=== PATIENT | male | born 1955 | race Caucasian/White ===

== ENCOUNTER 2019-05-04 15:53 | Emergency (ER) | payer OTHER ==
[~2019-05-04] VITALS: Ht 180.3 cm; Wt 108.9 kg
[~2019-05-04 15:53] MED LIST: ALBU90OI INH; Phenergan/Code480 ML PO; Prednisone20 MG PO
[2019-05-04 17:47] LABS: BASOPHILS ABSOLUTE AUTO 0.05 K/mm3 (0.00-0.23); BASOPHILS PERCENT AUTO 1 % (0-2); EOSINOPHILS PERCENT AUTO 6 % (0-6); Hematocrit 44.9 % (37.0-53.0); Hemoglobin 14.5 g/dL (13.5-17.5); IMMATURE GRAN ABSOLUTE AUTO 0.05 K/mm3 (0.00-0.10); IMMATURE GRAN PERCENT AUTO 1 % (0-1); LYMPHOCYTES ABSOLUTE AUTO 2.35 K/mm3 (0.84-5.20); LYMPHOCYTES PERCENT AUTO 27 % (21-46); MONOCYTES ABSOLUTE AUTO 0.73 K/mm3 (0.16-1.47); MONOCYTES PERCENT AUTO 8 % (4-13); Mean Corpuscular HGB 27.3 pg (26.0-34.0); Mean Corpuscular HGB Conc 32.3 g/dL (31.5-36.5); Mean Corpuscular Volume 85 fL (80-100); Mean Platelet Volume 8.9 fL (9.1-12.4); NEUTROPHILS PERCENT AUTO 58 % (41-73); Platelet Count 337 K/mm3 (150-400); RDW Coefficient Variation 13.4 % (11.7-14.2); RDW Standard Deviation 41.5 fL (35.1-46.3); Red Blood Cell Count 5.31 M/mm3 (4.30-5.90); White Blood Cell Count 8.78 K/mm3 (4.00-11.30)
[2019-05-04 18:20] LABS: Alanine Aminotransfer (ALT/SGP 64 U/L (12-78); Albumin, Blood 3.8 g/dL (3.4-5.0); Albumin/Globulin Ratio 0.9 (0.8-1.8); Alk Phos 98 U/L (50-136); Anion Gap 4 mmol/L (6-16); Aspartate Aminotrans (AST/SGOT 32 U/L (12-37); Bilirubin, Total 0.5 mg/dL (0.1-1.0); Blood Urea Nitrogen 25 mg/dL (8-24); Bun/Creatinine Ratio 19.5 (12.0-20.0); CO2, Blood 30 mmol/L (21-32); Calcium, Blood 8.9 mg/dL (8.5-10.1); Chloride, Blood 101 mmol/L (98-108); Creatinine, Blood 1.28 mg/dL (0.60-1.20); Globulin, Blood 4.2 g/dL (2.2-4.0); Glomerular Filtration Rate >60 (60-); Glucose, Blood 108 mg/dL (70-99); Potassium, Blood 4.6 mmol/L (3.5-5.5); Sodium, Blood 135 mmol/L (136-145); Troponin I <0.015 ng/mL (0.000-0.040)
[2019-05-04] MEDS ORDERED: Zithromax250 MG PO (18:49)
[2019-05-04] MEDS ORDERED: Prednisone20 MG PO (18:49)
[2019-05-04] MEDS ORDERED: ALBU90OI INH (18:49)
== END 2019-05-04 18:53 | disposition home or self-care (01) ==
LOC: ER 15:53
PROVIDERS: Physician Assistant
DX: R06.02 Shortness of breath (principal); Z87.891 Personal history of nicotine dependence
CPT/HCPCS: 36415; 71046; 80053; 84484; 85025; 85379; 93005; 93010; 94640; 99284-25; J7512

== ENCOUNTER 2019-11-25 11:19 | Emergency (ER) | payer OTHER ==
[~2019-11-25] VITALS: Ht 182.9 cm; Wt 108.9 kg
[~2019-11-25 11:19] MED LIST changes: +Zithromax250 MG PO
[2019-11-25 12:10] LABS: Influenza A Negative (NEGATIVE); Influenza B Negative (NEGATIVE)
[2019-11-25] MEDS ORDERED: GUAIFEN-CODEINE10 ML PO (12:39)
[2019-11-25] MEDS ORDERED: Zithromax250 MG PO (12:39)
[2019-11-25] MEDS ORDERED: Ventolin/Prove6.7 GM INH (12:39)
== END 2019-11-25 12:50 | disposition home or self-care (01) ==
LOC: ER 11:19
PROVIDERS: Physician Assistant
DX: J41.1 Mucopurulent chronic bronchitis (principal); Z87.891 Personal history of nicotine dependence
CPT/HCPCS: 71046; 87804; 99283-25

== ENCOUNTER 2020-04-11 11:15 | Emergency (ER) | payer OTHER ==
[~2020-04-11] VITALS: Ht 182.9 cm; Wt 113.4 kg
[~2020-04-11 11:15] MED LIST changes: +GUAIFEN-CODEINE10 ML PO; +Ventolin/Prove6.7 GM INH
[2020-04-11 12:11] LABS: BASOPHILS ABSOLUTE AUTO 0.04 K/mm3 (0.00-0.23); BASOPHILS PERCENT AUTO 0 % (0-2); EOSINOPHILS ABSOLUTE AUTO 0.01 K/mm3 (0.00-0.68); EOSINOPHILS PERCENT AUTO 0 % (0-6); Hematocrit 40.7 % (37.0-53.0); Hemoglobin 13.7 g/dL (13.5-17.5); IMMATURE GRAN ABSOLUTE AUTO 0.06 K/mm3 (0.00-0.10); IMMATURE GRAN PERCENT AUTO 1 % (0-1); LYMPHOCYTES ABSOLUTE AUTO 1.21 K/mm3 (0.84-5.20); LYMPHOCYTES PERCENT AUTO 10 % (21-46); MONOCYTES ABSOLUTE AUTO 1.34 K/mm3 (0.16-1.47); MONOCYTES PERCENT AUTO 11 % (4-13); Mean Corpuscular HGB 27.8 pg (26.0-34.0); Mean Corpuscular HGB Conc 33.7 g/dL (31.5-36.5); Mean Corpuscular Volume 83 fL (80-100); NEUTROPHILS ABSOLUTE AUTO 9.87 K/mm3 (1.96-9.15); NEUTROPHILS PERCENT AUTO 79 % (41-73); Platelet Count 259 K/mm3 (150-400); RDW Coefficient Variation 13.2 % (11.7-14.2); RDW Standard Deviation 39.6 fL (35.1-46.3); Red Blood Cell Count 4.93 M/mm3 (4.30-5.90); White Blood Cell Count 12.53 K/mm3 (4.00-11.30)
[2020-04-11 12:26] LABS: Alanine Aminotransfer (ALT/SGP 49 U/L (12-78); Albumin/Globulin Ratio 0.6 (0.8-1.8); Alk Phos 123 U/L (50-136); Anion Gap 9 mmol/L (6-16); Aspartate Aminotrans (AST/SGOT 35 U/L (12-37); Bilirubin, Total 0.8 mg/dL (0.1-1.0); Blood Urea Nitrogen 19 mg/dL (8-24); Bun/Creatinine Ratio 13.2 (12.0-20.0); CO2, Blood 25 mmol/L (21-32); Calcium, Blood 8.5 mg/dL (8.5-10.1); Chloride, Blood 95 mmol/L (98-108); Creatinine, Blood 1.44 mg/dL (0.60-1.20); Globulin, Blood 5.3 g/dL (2.2-4.0); Glomerular Filtration Rate 53 (60-); Glucose, Blood 151 mg/dL (70-99); Potassium, Blood 4.1 mmol/L (3.5-5.5); Sodium, Blood 129 mmol/L (136-145); Total Protein, Blood 8.3 g/dL (6.4-8.2); Troponin I <0.015 ng/mL (0.000-0.040)
[2020-04-11 15:35] LABS: Source, Urine Clean Catch
[2020-04-11 15:40] LABS: Bilirubin, Urine Neg (Neg); Blood, Urine 4+ (Neg); Glucose Qualitative, Urine 1+ (Neg); Ketones, Urine Neg (Neg); Leukocyte Esterase, Urine Neg (Neg); Nitrite, Urine Neg (Neg); Protein, Urine 3+ (Neg); Specific Gravity, Urine 1.015 (1.003-1.022); Urobilinogen, Urine 1+ (Normal)
[2020-04-11] MEDS ORDERED: Augmentin 875-1 EACH PO (15:54)
[2020-04-11] MEDS ORDERED: Zithromax250 MG PO (15:54)
[2020-04-11 15:58] LABS: Appearance, Urine Clear (Clear); Color, Urine Amber (P-Yellow)
[2020-04-11 16:03] LABS: Bacteria Few /hpf; Red Blood Cells, Urine Not Seen /hpf (0-2); Squamous Epithelial Cells Not Seen /hpf (Few); White Blood Cells, Urine 0-2 /hpf (0-5)
[2020-04-11 16:04] LABS: Hyaline Casts 0-2 /lpf (0-2); Mucus Light (0-Heavy)
== END 2020-04-11 16:22 | disposition home or self-care (01) ==
LOC: ER 11:15
PROVIDERS: Emergency Medicine; Physician Assistant
DX: J18.9 Pneumonia, unspecified organism (principal); Z20.828 Contact with and (suspected) exposure to other viral communicable diseases; E87.1 Hypo-osmolality and hyponatremia; Z87.891 Personal history of nicotine dependence
CPT/HCPCS: 36415; 71045; 80053; 81001; 83605; 84145; 84484; 85025; 87040; 93005; 93010; 99284-25; U0002

== ENCOUNTER 2022-12-01 21:13 | Emergency (ER) | payer OTHER ==
[~2022-12-01] VITALS: Ht 172.7 cm; Wt 185.0 kg
[~2022-12-01 21:13] MED LIST changes: +Augmentin 875-1 EACH PO
[2022-12-01] MEDS ORDERED: AMOCLA875 PO (22:43)
== END 2022-12-02 01:40 | disposition home or self-care (01) ==
LOC: ER 21:13
DX: L03.116 Cellulitis of left lower limb (principal); Z87.891 Personal history of nicotine dependence
CPT/HCPCS: 73630; J0692; J3370; J7050

== ENCOUNTER 2022-12-03 13:39 | Day surgery (SDC) | payer OTHER ==
[~2022-12-03] VITALS: Ht 180.3 cm; Wt 98.9 kg
[~2022-12-03 13:39] MED LIST changes: +AMOCLA875 PO
[2022-12-03 15:55] LABS: Creatinine, Blood 1.1 mg/dL (0.60-1.20)
== END 2022-12-03 17:28 | disposition home or self-care (01) ==
LOC: ATC 13:39
DX: M86.9 Osteomyelitis, unspecified (principal); Z87.891 Personal history of nicotine dependence
CPT/HCPCS: 82565; J0696; J3370; J7050

== ENCOUNTER 2022-12-04 01:05 | Day surgery (SDC) | payer OTHER ==
[2022-12-05] MEDS ORDERED: CUBICIN RF500 M1 IV (07:40)
[2022-12-05] MEDS ORDERED: CEFTRIAXONE2 G1 IV (07:40)
== END 2022-12-04 17:03 | disposition home or self-care (01) ==
LOC: ATC 01:05
DX: L03.116 Cellulitis of left lower limb (principal); Z87.891 Personal history of nicotine dependence
CPT/HCPCS: 96365; 96366; 96375; J0696; J3370; J7050

== ENCOUNTER 2022-12-05 04:43 | Day surgery (SDC) | payer OTHER ==
[2022-12-05] MEDS ORDERED: CEFTRIAXONE2 G1 IV (07:40)
[2022-12-05] MEDS ORDERED: CUBICIN RF500 M1 IV (07:40)
== END 2022-12-05 08:14 | disposition home or self-care (01) ==
LOC: ATC 04:43
DX: M86.9 Osteomyelitis, unspecified (principal)
CPT/HCPCS: 96365; 96375; C1751; J0696; J0878

== ENCOUNTER 2022-12-06 00:09 | Day surgery (SDC) | payer OTHER ==
[~2022-12-06 00:09] MED LIST changes: +CEFTRIAXONE2 G1 IV; +CUBICIN RF500 M1 IV
== END 2022-12-06 08:07 | disposition home or self-care (01) ==
LOC: ATC 00:09
DX: L03.116 Cellulitis of left lower limb (principal); Z87.891 Personal history of nicotine dependence
CPT/HCPCS: 96365; 96375; J0696; J0878

== ENCOUNTER 2022-12-07 02:27 | Day surgery (SDC) | payer OTHER | END 2022-12-07 08:11 | disposition home or self-care (01) | LOC: ATC 02:27 | DX: M86.9 Osteomyelitis, unspecified (principal) | CPT/HCPCS: J0696; J0878 ==

== ENCOUNTER 2022-12-08 04:18 | Emergency (ER) | payer OTHER ==
[~2022-12-08] VITALS: Ht 180.3 cm; Wt 92.5 kg
== END 2022-12-08 06:00 | disposition home or self-care (01) ==
LOC: ER 04:18
DX: M25.552 Pain in left hip (principal); Z79.899 Other long term (current) drug therapy; Z87.891 Personal history of nicotine dependence
CPT/HCPCS: 73502; A9270; J1885

== ENCOUNTER 2022-12-09 00:25 | Day surgery (SDC) | payer OTHER | END 2022-12-09 22:36 | disposition home or self-care (01) | LOC: ATC 00:25 | DX: L03.116 Cellulitis of left lower limb (principal) | CPT/HCPCS: J0696; J0878 ==

== ENCOUNTER 2022-12-10 01:31 | Day surgery (SDC) | payer OTHER | END 2022-12-10 22:58 | disposition home or self-care (01) | LOC: ATC 01:31 | DX: M86.9 Osteomyelitis, unspecified (principal); L03.116 Cellulitis of left lower limb; Z87.891 Personal history of nicotine dependence ==

== ENCOUNTER 2022-12-12 01:27 | Day surgery (SDC) | payer OTHER | END 2022-12-12 08:20 | disposition home or self-care (01) | LOC: ATC 01:27 | DX: M86.9 Osteomyelitis, unspecified (principal) | CPT/HCPCS: J0696; J0878 ==

== ENCOUNTER 2022-12-13 02:37 | Day surgery (SDC) | payer OTHER | END 2022-12-13 08:25 | disposition home or self-care (01) | LOC: ATC 02:37 | DX: M86.9 Osteomyelitis, unspecified (principal); Z87.891 Personal history of nicotine dependence | CPT/HCPCS: 96365; J0696; J0878 ==

== ENCOUNTER 2022-12-14 01:55 | Day surgery (SDC) | payer OTHER | END 2022-12-14 08:17 | disposition home or self-care (01) | LOC: ATC 01:55 | DX: M86.9 Osteomyelitis, unspecified (principal); Z87.891 Personal history of nicotine dependence | CPT/HCPCS: J0696; J0878 ==

== ENCOUNTER 2022-12-14 10:08 | Day surgery (SDC) | payer OTHER ==
[~2022-12-14] VITALS: Ht 180.3 cm; Wt 98.4 kg
--- NOTE | 2022-12-14 13:04 | NUR ---
[facility]14/[address] [facility] FOR L LEG "DRAGGING", DR RASCON AWARE. RECEIVED IV ABX THIS AM [facility] THAT HE IS HERE FOR SURGERY FOR TODAY, DR RASCON AND DR STARKS ALERTED.
== END 2022-12-14 14:59 | disposition home or self-care (01) ==
LOC: ORSCSDS 10:08
PROVIDERS: Podiatrist Foot & Ankle Surgery
PROC: 0Y6U0Z1 Detachment at Left 3rd Toe, High, Open Approach (ICD-10-PCS; principal; 2022-12-14 12:40)
DX: M86.9 Osteomyelitis, unspecified (principal); L03.032 Cellulitis of left toe; Z87.891 Personal history of nicotine dependence
CPT/HCPCS: 88305; 88311; 96365; 96375; J0690; J0696; J0878; J2001; J2704; J2795; J7120

== ENCOUNTER 2022-12-15 00:16 | Day surgery (SDC) | payer OTHER | END 2022-12-15 09:20 | disposition home or self-care (01) | LOC: ATC 00:16 | DX: M86.9 Osteomyelitis, unspecified (principal); Z87.891 Personal history of nicotine dependence | CPT/HCPCS: J0696; J0878 ==

== ENCOUNTER 2023-01-22 01:32 | Emergency (ER) | payer OTHER ==
[~2023-01-22] VITALS: Ht 170.2 cm; Wt 79.4 kg
[2023-01-22 03:20] LABS: BASOPHILS ABSOLUTE AUTO 0.04 K/mm3 (0.00-0.23); BASOPHILS PERCENT AUTO 0 % (0-2); EOSINOPHILS ABSOLUTE AUTO 0.81 K/mm3 (0.00-0.68); EOSINOPHILS PERCENT AUTO 7 % (0-6); Hematocrit 38.7 % (37.0-53.0); IMMATURE GRAN ABSOLUTE AUTO 0.03 K/mm3 (0.00-0.10); IMMATURE GRAN PERCENT AUTO 0 % (0-1); LYMPHOCYTES PERCENT AUTO 15 % (21-46); MONOCYTES ABSOLUTE AUTO 0.96 K/mm3 (0.16-1.47); MONOCYTES PERCENT AUTO 8 % (4-13); Mean Corpuscular HGB 26.5 pg (26.0-34.0); Mean Corpuscular HGB Conc 33.6 g/dL (31.5-36.5); Mean Corpuscular Volume 79 fL (80-100); Mean Platelet Volume 8.3 fL (9.1-12.4); NEUTROPHILS ABSOLUTE AUTO 8.15 K/mm3 (1.96-9.15); NEUTROPHILS PERCENT AUTO 70 % (41-73); Platelet Count 370 K/mm3 (150-400); RDW Coefficient Variation 13.8 % (11.7-14.2); Red Blood Cell Count 4.91 M/mm3 (4.30-5.90); White Blood Cell Count 11.69 K/mm3 (4.00-11.30)
[2023-01-22 03:38] LABS: Albumin, Blood 3.2 g/dL (3.4-5.0); Albumin/Globulin Ratio 0.6 (0.8-1.8); Bun/Creatinine Ratio 18.2 (12.0-20.0); Calcium, Blood 9.1 mg/dL (8.5-10.1); Creatinine, Blood 1.54 mg/dL (0.60-1.20); Potassium, Blood 4.4 mmol/L (3.5-5.5); Total Protein, Blood 8.2 g/dL (6.4-8.2)
[2023-01-22] MEDS ORDERED: CEPH500 PO (04:24)
== END 2023-01-22 04:36 | disposition home or self-care (01) ==
LOC: ER 01:32
PROVIDERS: Student in an Organized Health Care Education/Training Program
DX: S62.630B Displaced fracture of distal phalanx of right index finger, initial encounter for open fracture (principal); W22.8XXA Striking against or struck by other objects, initial encounter
CPT/HCPCS: 36415; 73140; 80053; 83605; 85025; 90471; 90714; 96374; 99283-25; J0690

== ENCOUNTER 2023-07-26 14:54 | Emergency (ER) | payer OTHER ==
[~2023-07-26] VITALS: Ht 177.8 cm; Wt 127.0 kg
[~2023-07-26 14:54] MED LIST changes: +ACET325 PO; +CEPH500 PO; +DOCU100 PO; +OXAYDO5 M1 PO; +SULTRIDS PO; +VISBIOME 112.51 EACH PO
[2023-07-26 18:02] VITALS: BP 148/81
[2023-07-26] MEDS ORDERED: ONDA4 PO (20:20)
== END 2023-07-26 20:36 | disposition home or self-care (01) ==
LOC: ER 14:54
DX: M66.0 Rupture of popliteal cyst (principal); Z79.899 Other long term (current) drug therapy; Z87.891 Personal history of nicotine dependence
CPT/HCPCS: 93971; 96372; 99283-25; A9270; J1885

== ENCOUNTER 2023-08-16 04:39 | Day surgery (SDC) | payer OTHER ==
[~2023-08-16 04:39] MED LIST changes: +Amlodipine-Ben1 EAC1 PO; +ONDA4 PO
[2023-08-16 13:58] VITALS: BP 152/65
== END 2023-08-16 14:27 | disposition home or self-care (01) ==
LOC: ATC 04:39
DX: R78.81 Bacteremia (principal); M00.9 Pyogenic arthritis, unspecified
CPT/HCPCS: 96365; J0696

== ENCOUNTER 2023-08-17 13:14 | Day surgery (SDC) | payer OTHER ==
[2023-08-17 13:27] VITALS: BP 149/82
== END 2023-08-17 14:00 | disposition home or self-care (01) ==
LOC: ATC 13:14
DX: M00.9 Pyogenic arthritis, unspecified (principal); Z89.021 Acquired absence of right finger(s); Z89.422 Acquired absence of other left toe(s); D64.9 Anemia, unspecified
CPT/HCPCS: 96365; J0696

== ENCOUNTER 2023-08-18 04:04 | Day surgery (SDC) | payer OTHER ==
[2023-08-18 14:45] VITALS: BP 118/68
== END 2023-08-18 14:56 | disposition home or self-care (01) ==
LOC: ATC 04:04
DX: R78.81 Bacteremia (principal); M00.9 Pyogenic arthritis, unspecified; N17.9 Acute kidney failure, unspecified; Z89.021 Acquired absence of right finger(s)
CPT/HCPCS: 96365; J0696

== ENCOUNTER 2023-08-19 00:11 | Day surgery (SDC) | payer OTHER ==
[2023-08-19 13:52] VITALS: BP 134/100
== END 2023-08-19 14:10 | disposition home or self-care (01) ==
LOC: ATC 00:11
DX: R78.81 Bacteremia (principal); M00.9 Pyogenic arthritis, unspecified; Z89.021 Acquired absence of right finger(s)
CPT/HCPCS: 96365; J0696

== ENCOUNTER 2023-09-06 10:58 | Inpatient (IN) | payer OTHER ==
[~2023-09-06] VITALS: Ht 180.3 cm; Wt 122.5 kg
[2023-09-06 11:35] LABS: BASOPHILS ABSOLUTE AUTO 0.04 K/mm3 (0.00-0.23); BASOPHILS PERCENT AUTO 0 % (0-2); EOSINOPHILS ABSOLUTE AUTO 0.81 K/mm3 (0.00-0.68); EOSINOPHILS PERCENT AUTO 6 % (0-6); Hematocrit 31.4 % (37.0-53.0); Hemoglobin 10.2 g/dL (13.5-17.5); IMMATURE GRAN PERCENT AUTO 1 % (0-1); LYMPHOCYTES ABSOLUTE AUTO 2.38 K/mm3 (0.84-5.20); LYMPHOCYTES PERCENT AUTO 17 % (21-46); MONOCYTES PERCENT AUTO 5 % (4-13); Mean Corpuscular HGB 26.2 pg (26.0-34.0); Mean Corpuscular HGB Conc 32.5 g/dL (31.5-36.5); Mean Corpuscular Volume 81 fL (80-100); Mean Platelet Volume 8.3 fL (9.1-12.4); NEUTROPHILS ABSOLUTE AUTO 9.72 K/mm3 (1.96-9.15); NEUTROPHILS PERCENT AUTO 71 % (41-73); Platelet Count 444 K/mm3 (150-400); RDW Coefficient Variation 13.7 % (11.7-14.2); RDW Standard Deviation 39.7 fL (35.1-46.3); White Blood Cell Count 13.75 K/mm3 (4.00-11.30)
[2023-09-06 11:58] LABS: Albumin, Blood 2.6 g/dL (3.4-5.0); Albumin/Globulin Ratio 0.4 (0.8-1.8); Bilirubin, Total 0.3 mg/dL (0.1-1.0); Bun/Creatinine Ratio 21.9 (12.0-20.0); C-REACTIVE PROTEIN, EXT RANGE 3.91 mg/dL (0.000-0.300); Calcium, Blood 8.7 mg/dL (8.5-10.1); Creatinine, Blood 1.51 mg/dL (0.60-1.20); Globulin, Blood 6.2 g/dL (2.2-4.0); Potassium, Blood 4.2 mmol/L (3.5-5.5); Total Protein, Blood 8.8 g/dL (6.4-8.2)
[2023-09-06 13:05] LABS: Body Fluid Crystals NEG (NEGATIVE)
[2023-09-06 13:43] LABS: Appearance, Synovial Fluid Cloudy (Clear); Color, Synovial Fluid Brown (None-P Yel)
[2023-09-06 13:44] LABS: BODY FLUID RBC 0.034 M/mm3 (0-0); RBC Count, Synovial Fluid 34000 /mm3 (0-0)
[2023-09-06 14:59] LABS: Neutrophils, Synovial Fluid 100 % (0-24)
[2023-09-06 18:37] VITALS: BP 151/86
--- NOTE | 2023-09-06 18:40 | NUR ---
Received pt from ED at 1830 awake and alert x3. VSS. Oriented to room and call light. Pt ambulating independently. Resp even nonlabored on RA. Daughter at bedside.
[2023-09-06 20:35] VITALS: BP 144/77
[2023-09-06] MEDS ORDERED: CEFTRIAXON1 GM/50 M1 IV (21:36)
[2023-09-06] MEDS ORDERED: Keflex500 MG PO (21:37)
[2023-09-06] MEDS ORDERED: OXYC5 PO (21:38)
[2023-09-06 22:12] LABS: U Amphetamine Screen DETECTED; U Barbituate Screen Not Detected; U Benzodiazapine Screen DETECTED; U Buprenorphine Screen Not Detected; U Cannabinoids Screen Not Detected; U Cocaine Screen Not Detected; U Methadone Screen Not Detected; U Methamphetamine Screen DETECTED; U Opiates Screen Not Detected; U Oxycodone Screen Not Detected; U Phencyclidine Screen Not Detected; U Propoxyphene Screen Not Detected
[2023-09-07] VITALS (12 sets, daily range): BP systolic 120–159; BP diastolic 71–95
--- NOTE | 2023-09-07 05:03 | NUR ---
SUMMARY: PT A/OX4, CALLS APPROPRIATELY TO SPECIFY NEEDS AND IS PLEASANT AND COOPERATIVE W/CARE. HE'S UP INDEPENDENTLY, IS AWARE OF LIMITATIONS AND WT.BEARS TOLERATED. ROM IS LIMITED TO SWOLLEN L.KNEE D/T SEPTIC ARTHRITIS. PT MADE NPO SINCE HI FOR 'S PROCEDURE TODAY. U.TOX COLLECTED AND HE WAS (+) FOR METH/AMPHETAMINES AND BENZOS. NO ACUTE CHANGES, VSS/AFEBRILE. WCTM AND REPORT TO DAY RN.
[2023-09-07 05:24] LABS: BASOPHILS ABSOLUTE AUTO 0.03 K/mm3 (0.00-0.23); BASOPHILS PERCENT AUTO 0 % (0-2); EOSINOPHILS ABSOLUTE AUTO 0.54 K/mm3 (0.00-0.68); EOSINOPHILS PERCENT AUTO 5 % (0-6); Hematocrit 29.2 % (37.0-53.0); Hemoglobin 9.4 g/dL (13.5-17.5); IMMATURE GRAN ABSOLUTE AUTO 0.06 K/mm3 (0.00-0.10); IMMATURE GRAN PERCENT AUTO 1 % (0-1); LYMPHOCYTES ABSOLUTE AUTO 2.49 K/mm3 (0.84-5.20); LYMPHOCYTES PERCENT AUTO 24 % (21-46); MONOCYTES ABSOLUTE AUTO 0.62 K/mm3 (0.16-1.47); MONOCYTES PERCENT AUTO 6 % (4-13); Mean Corpuscular HGB 25.7 pg (26.0-34.0); Mean Corpuscular HGB Conc 32.2 g/dL (31.5-36.5); Mean Corpuscular Volume 80 fL (80-100); Mean Platelet Volume 8.5 fL (9.1-12.4); NEUTROPHILS ABSOLUTE AUTO 6.62 K/mm3 (1.96-9.15); NEUTROPHILS PERCENT AUTO 64 % (41-73); Platelet Count 414 K/mm3 (150-400); RDW Coefficient Variation 13.8 % (11.7-14.2); RDW Standard Deviation 39.7 fL (35.1-46.3); Red Blood Cell Count 3.66 M/mm3 (4.30-5.90); White Blood Cell Count 10.36 K/mm3 (4.00-11.30)
[2023-09-07 06:18] LABS: Bun/Creatinine Ratio 20.1 (12.0-20.0); Calcium, Blood 8.8 mg/dL (8.5-10.1); Creatinine, Blood 1.34 mg/dL (0.60-1.20); Potassium, Blood 3.9 mmol/L (3.5-5.5)
--- NOTE | 2023-09-07 14:55 | NUR ---
09/07/23 1455 Bernadine Shelton PT ON SCHEDULED ANTIBIOTICS
--- NOTE | 2023-09-07 16:20 | NUR ---
Received pt back from OR with gerardo accordian drain to left knee with hussain wrap. Drain with red blood output. Pt awake and alert. Denies pain. VSS. Call light in reach. Will monitor.
[2023-09-08 04:07] VITALS: BP 173/89
--- NOTE | 2023-09-08 05:32 | NUR ---
SHIFT SUMMARY 68 YR M ADMITTED ON 09/06/23 FOR SEPTIC ARTHRITIS OF THE LEFT KNEE. FULL CODE. NO ACUTE CHANGES THIS SHIFT. PT C/O PAIN IN HIS LEFT KNEE AFTER I&D. HE WAS GIVEN TRAMADOL WHICH HE STATED WAS VERY AFFECTIVE. NADER ACCORDIAN DRAIN IS DRAINING WELL W/ SANGENOUS DRAINAGE. PT IS A&O X 4 AND IS VERY PLEASANT. HE IS CURRENTLY USING A BEDSIDE URINAL INDEPENDANTLY. BED IN LOW POSITION AND CALL LIGHT IN REACH.
[2023-09-08 07:55] VITALS: BP 153/91
[2023-09-08 15:38] VITALS: BP 161/82
--- NOTE | 2023-09-08 18:26 | NUR ---
SHIFT SUMMARY: Pt remains A&O x3 this shift. VSS. Pain managed with po meds. Up to bathroom independently. Dr. Gordon at bedside today, 110ml output from knee drain. IV antibiotics given. Call light in reach. Will continue to monitor.
[2023-09-08 19:21] VITALS: BP 141/66
[2023-09-09 04:13] VITALS: BP 151/79
[2023-09-09 05:19] LABS: Hematocrit 29.7 % (37.0-53.0); Hemoglobin 9.6 g/dL (13.5-17.5); Mean Corpuscular HGB 25.6 pg (26.0-34.0); Mean Corpuscular HGB Conc 32.3 g/dL (31.5-36.5); Mean Corpuscular Volume 79 fL (80-100); Mean Platelet Volume 8.3 fL (9.1-12.4); Platelet Count 478 K/mm3 (150-400); RDW Coefficient Variation 13.7 % (11.7-14.2); RDW Standard Deviation 39.4 fL (35.1-46.3); Red Blood Cell Count 3.75 M/mm3 (4.30-5.90); White Blood Cell Count 9.51 K/mm3 (4.00-11.30)
[2023-09-09 05:36] LABS: Calcium, Blood 8.8 mg/dL (8.5-10.1); Creatinine, Blood 1.28 mg/dL (0.60-1.20); Magnesium, Blood 1.8 mg/dL (1.6-2.4); Potassium, Blood 3.9 mmol/L (3.5-5.5)
[2023-09-09 07:50] VITALS: BP 153/90
[2023-09-09 15:50] VITALS: BP 144/66
--- NOTE | 2023-09-09 17:03 | NUR ---
SHIFT SUMMARY A&OX4, COOPERATIVE WITH CARE, PLEASANT. SLEPT OFF AND ON T/O SHIFT. COMPLAINED OF 6/10 PAIN TO L KNEE, TREATED WITH TRAMADOL PER EMAR. DENIES CP/PRESSURE, HEADACHE, DIZZINESS, OR SOB. REPORTS CHRONIC PERIPHERAL NUMBNESS AND TINGLING. APPETITE GOOD. NADER ACCORDIAN DRAIN STILL DRAINING AND WAS NOT REMOVED TODAY. NO ACUTE EVENTS THIS SHIFT. PATIENT IS CURRENLTY LAYING IN BED WATCHING TV, LLE ELEVATED, AND CALL LIGHT WITHIN REACH.
[2023-09-09 19:28] VITALS: BP 140/78
[2023-09-10 04:04] VITALS: BP 148/80
--- NOTE | 2023-09-10 05:28 | NUR ---
SHIFT SUMMARY PT ALERT AND ORIENTED X 4. IND IN ROOM. BP STABLE. HR STABLE. NO CP OR PRESSURE. OXYGEN SATURATION MAINTAINED ABOVE 95% ON RA. ACCORDION DRAIN DRAINING SEROUS FLUID. 50 ML DRAINED T/O SHIFT. PT MEDICATED ONCE DURING SHIFT FOR PAIN. NO ACUTE CHANGES DURING NIGHT. WILL CONT TO MONITOR UNTIL REPORT GIVEN TO DAYSHIFT RN.
[2023-09-10 07:36] VITALS: BP 152/85
--- NOTE | 2023-09-10 18:07 | NUR ---
AMA DISCHARGE PATIENT VERBALIZED THAT HE WILL NOT STAY HERE AT THE HOSPITAL UNTIL TOMORROW. NOTIFIED DR GRAYSON WHO STATED THAT HE WOULD PUT IN THE DISCHARGE ORDER FOR THE PT TONIGHT, BUT THE PATIENT WOULD NOT BE SET UP WITH THE [facility]. DISCUSSED WITH PATIENT AND FAMILY THAT IF HE LEAVES TONIGHT, HE WOULD NEED TO RETURN VIA ED IF HE WANTS FURTHER TREATMENT AND TO BE SET UP WITH [facility]. PATIENT VERBALIZED HE WAS LEAVING AFTER DINNER WHETHER OR NOT KENAN PUT IN THE DC ORDER. EXPLAINED TO PATIENT THE RISKS OF LEAVING AMA. HE VERBALIZED UNDERSTANDING AND DENIED ANY QUESTIONS OR CONCERNS. AMA PAPERWORK SIGNED AND LABELED. PATIENT LEFT WITH FRIEND AT 1810.
== END 2023-09-10 18:09 | disposition left against medical advice (07) | DRG 487 ==
LOC: ER 10:58 → MEDS 17:53
PROVIDERS: Emergency Medicine; Internal Medicine; Orthopaedic Surgery; Physician Assistant; ADMIT Family Medicine
PROC: 0SBD0ZZ Excision of Left Knee Joint, Open Approach (ICD-10-PCS; principal; 2023-09-07 15:45)
DX: M00.862 Arthritis due to other bacteria, left knee (principal); Z53.29 Procedure and treatment not carried out because of patient's decision for other reasons; G60.9 Hereditary and idiopathic neuropathy, unspecified; F15.10 Other stimulant abuse, uncomplicated; D63.1 Anemia in chronic kidney disease; I12.9 Hypertensive chronic kidney disease with stage 1 through stage 4 chronic kidney disease, or unspecified chronic kidney disease; N18.30 Chronic kidney disease, stage 3 unspecified; D75.838 Other thrombocytosis; E66.9 Obesity, unspecified; Z68.37 Body mass index [BMI] 37.0-37.9, adult; Z98.890 Other specified postprocedural states; Z87.891 Personal history of nicotine dependence; Z86.19 Personal history of other infectious and parasitic diseases; Z79.899 Other long term (current) drug therapy
CPT/HCPCS: 20611; 36415; 71045; 73721; 80048; 80053; 83605; 83735; 85025; 85027; 86140; 87040; 87070; 87075; 87205; 88304; 88305; 88341; 88342; 89051; 89060; 96365-59; 97110; 97116; 97161; 97530; 99285-25; A9270; J0696; J1100; J1170; J2371; J2405; J2704; J3010; J7120

== ENCOUNTER 2023-09-14 06:17 | Emergency (ER) | payer OTHER ==
[~2023-09-14] VITALS: Ht 180.3 cm; Wt 104.3 kg
[~2023-09-14 06:17] MED LIST changes: +CEFTRIAXON1 GM/50 M1 IV; +Keflex500 MG PO; +OXYC5 PO
[2023-09-14 06:35] VITALS: BP 159/79
== END 2023-09-14 10:41 | disposition home or self-care (01) ==
LOC: ER 06:17
DX: M86.8X8 Other osteomyelitis, other site (principal); Z87.891 Personal history of nicotine dependence; Z79.899 Other long term (current) drug therapy
CPT/HCPCS: 96365; 96366; 99281-25; J3370; J7050